=== PATIENT | female | born 1980 | race Caucasian/White ===

== ENCOUNTER 2018-07-17 22:46 | Emergency (ER) | payer SELFPAY ==
[~2018-07-17] VITALS: Ht 152.4 cm; Wt 73.0 kg
[2018-07-17 22:51] VITALS: BP 134/91; PULSE 97; RESP 24; Ht 152.4 cm; Wt 73.0 kg
== END 2018-07-18 00:16 | disposition left against medical advice (07) ==
LOC: E/R 22:46
DX: Z53.21 Procedure and treatment not carried out due to patient leaving prior to being seen by health care provider (principal)